=== PATIENT | male | born 1950 | race Caucasian/White ===

== ENCOUNTER 2019-03-31 06:00 | Outpatient (RCR) | payer OTHER, SELFPAY | END 2019-04-30 23:59 | disposition home or self-care (01) | LOC: SPT 06:00 | PROVIDERS: Family Provider Family Medicine; PCP Family Medicine; Visit Provider Specialist | DX: Z47.1 Aftercare following joint replacement surgery (principal); Z96.652 Presence of left artificial knee joint ==

== ENCOUNTER 2019-04-28 11:38 | Outpatient (CLI) | payer OTHER, SELFPAY | END 2019-04-28 11:39 | disposition home or self-care (01) | LOC: RAD 14:33 | PROVIDERS: PCP Family Medicine; Visit Provider Specialist | DX: Z96.652 Presence of left artificial knee joint (principal) | CPT/HCPCS: 73560; 73565 ==

== ENCOUNTER 2019-05-07 07:49 | Outpatient (CLI) | payer OTHER, SELFPAY ==
--- NOTE | 2019-05-07 08:00 | NM_ITS ---
WS: [id number] THREE-PHASE BONE SCAN HISTORY: fracture vs prosthetic loosening COMPARISON: 04/28/2019 radiographs. Patient is is injected with 25.3 mCi Tc99m HDP intravenously. Immediate angiographic phase imaging is performed over the area of concern. Static blood pool imaging also performed. Two-hour whole-body sc intigrams performed in anterior and posterior projections. Additional large field of view imaging sub mitted as necessary. 3 phase imaging is centered over the knees. Angiographic and blood pool phase imaging is normal. On t he two-hour delayed imaging there is some very mild increased uptake surrounding the LEFT knee prosth esis, greatest involving the femoral prosthesis. Arthroplasty was performed approximately 13 months a go. This may be some residual uptake from the surgery. Early loosening not excluded. No loosening is evident radiographically as seen on 04/28/2019. Mild increased uptake at the AC joints and RIGHT sternoclavicular joint, RIGHT knee and first metatar sophalangeal joint. These are changes associated with osteoarthritis most likely. Normal soft tissue activity and renal uptake is identified. NM/NM bone 3 phase 86522 IMPRESSION: 1. No evidence for infection or osteomyelitis at the LEFT knee arthroplasty. 2. Mild increased uptake at the LEFT knee around the prosthetic components, gr eatest involving the femoral component. Early loosening may appear similar but no evidence for loosening radiographically. May be residual marrow uptake from the prosthetic placement was done just over a year ago. Recommend continued rad iographic follow-up for evolution of prosthetic loosening.
== END 2019-05-07 07:50 | disposition home or self-care (01) ==
LOC: RAD 07:53
PROVIDERS: Family Provider Family Medicine; PCP Family Medicine; Visit Provider Specialist
DX: Z96.652 Presence of left artificial knee joint (principal)
CPT/HCPCS: 78315; A9561

== ENCOUNTER 2019-10-19 14:03 | Emergency (ER) | payer OTHER, SELFPAY ==
[2019-10-19 14:17] VITALS: BP 165/89; PULSE 62; RESP 16; TEMP 36.9; O2SAT 95; BMI 28.8
--- NOTE | 2019-10-19 14:27 | CT_ITS ---
WS: [id number] CT ABDOMEN AND PELVIS WITH CONTRAST HISTORY: abdominal pain TECHNIQUE: Imaging performed of the abdomen and pelvis with IV contrast. Single phase imaging of the abdomen. Coronal and sagittal reformats are submitted. All CT scans at [facility] use at least one of these dose optimization techniques: automated exposure control; mA and/or kV adjustment per patient size (includes targeted exams where dose is matched to clinical indication); or iterativ e reconstruction. IV CONTRAST: Omnipaque 300; 95 mL IV. Oral contrast: No DLP: 1587.15 mGy.cm COMPARISON: 04/20/2018 Lower thorax: Hyperinflated lungs from emphysema. Heart is normal size. No hiatal hernia. Liver/biliary system: Normal size with no intrahepatic dilatation. Gallbladder: Normal. No gallstones or wall thickening. No pericholecystic fluid. Pancreas: Normal. Spleen: Normal. Adrenal glands: Normal. Right kidney: Mild perinephric stranding and cortical thinning. Cortical 3.2 cm cyst from the mid kid evelyn. There is an additional smaller cyst at the inferior pole. Left kidney: Mild perinephric stranding and cortical thinning. Stable cortical cyst in the lower pole measures 1.8 cm. Aorta: Mild atherosclerosis with no aneurysm. Lymphadenopathy: None. Free fluid: None. GI tract: The appendix is not definitely visualized. No GI tract obstruction or mucosal thickening. T here are a few scattered diverticula throughout the colon with no acute inflammation. Abdominal wall: Unremarkable abdominal wall. No hernia. Pelvis: Normal. Bones: Mild disc space narrowing at L5-S1. Moderate degenerative spondylitic changes in the lumbar sp ine. CT/CT abdomen pelvis w con* [id number] IMPRESSION: 1. No acute abdominal or pelvic abnormalities. 2. Mild perinephric stranding and bilateral renal cysts. 3. No GI tract obstruction. 4. The appendix is not identified.
--- NOTE | 2019-10-19 14:28 | ED_ITS ---
HPI - General Adult General: Chief complaint: General Medical Stated complaint: CONSTIPATION Time Seen by Provider: 10/19/19 14:23 History of Present Illness: HPI narrative: Patient sent over from the [place] [facility] today due to constipation and their scrips have not been working to help him have more frequent bowel movement or larger bowel meds. Patient complains about some abdominal pain also 22 pound weight loss in last 3 weeks. Said stools are thin irregular over the last 3 weeks. MD complaint: Abdominal pain constipation Onset (ago): week(s) Location: abdomen Quality: dull Pain Consistency: intermittent Relieving factors: none Associated symptoms: Reports no associated symptoms; Deny chest pain, dyspnea, headache(s), nausea, rash or vomiting Treatments prior to arrival: other (Enema stool softeners laxatives) Review of Systems Const: Denies: fever(s), chills or body aches Eyes: Denies: change in vision or blurry vision ENMT: Denies: throat pain or nasal congestion Card: Denies: chest pain or dyspnea on exertion Resp: Denies: dyspnea, productive cough or non-productive cough GI: Reports: abdominal pain, constipation and bloating; Denies: nausea or vomiting : Denies: difficulty urinating Musc: Denies: extremity pain Skin/Breast: Denies: rash Neuro: Denies: headache(s) Psych: Denies: anxiety or depression Coleman/Lymph: Denies: easy bruising PFSH ED PFSH: Surgical History Status post total knee replacement, left Family History Brother Diabetes Mother Cancer Social History Smoking and tobacco status: never smoked Alcohol intake: current Alcohol intake frequency: holidays/special occasions only Alcohol type: wine Physical Exam Const: COMMON NORMALS: no acute distress, average body habitus and patient oriented x3 HENMT: COMMON NORMALS: normocephalic HEAD & SCALP: normal to inspection and normocephalic FACE & SINUS: normal facial exam Eye: COMMON NORMALS: conjunctivae normal GENERAL EYE: appearance normal, both eyes and all related structures CONJUNCTIVA: Yes conjunctivae normal Neck/C-Spine: COMMON NORMALS: no JVD Chest: COMMONS NORMALS: normal inspection of the chest Resp: COMMON NORMALS: normal respiratory effort and clear to auscultation bilaterally AUSCULTATION: clear to auscultation bilaterally Cardio: COMMON NORMALS: no JVD, regular rate and regular rhythm RATE: regular rate RHYTHM: regular rhythm GI: COMMON NORMALS: Normal to inspection, nondistended, normoactive bowel sounds present PALPATION: Yes Tenderness to palpation present (GI) Details: LLQ and RLQ Extremity: COMMON NORMALS: normal to inspection and full ROM Neuro: COMMON NORMALS: patient oriented x3 Course Vital Signs: Vital signs: Vital Signs Temperature 98.4 F 10/19/19 14:17 Pulse Rate 70 10/19/19 15:35 Respiratory Rate 20 H 10/19/19 15:35 Blood Pressure 119/70 10/19/19 15:35 Pulse Oximetry 98 10/19/19 15:35 MDM - General Adult Lab Data: Labs: Lab Results 10/19/19 10/19/19 10/19/19 Range/Units 14:40 14:44 14:44 WBC 7.1 (4.0-10.0) 10^3/ uL RBC 4.76 (4.1-5.3) 10^6/u L Hgb 14.5 (11.7-16.6) g/dL Hct 43.9 (42.0-52.0) % MCV 92.2 (80-94) fL MCH 30.5 (28.0-34.0) pg MCHC 33.0 (30.0-36.0) g/dL RDW 12.5 (12.1-15.1) % Plt Count 199 (130-400) 10^3/c mm MPV 10.8 H (7.4-10.4) fL Neut % (Auto) 66.0 % Lymph % (Auto) 16.3 % [place] % (Auto) 10.3 % Eos % (Auto) 5.9 % Baso % (Auto) 1.4 % Neut # (Auto) 4.68 (1.8-7.7) 10^3/u L Lymph # (Auto) 1.2 (0.8-4.8) 10^3/u L [place] # (Auto) 0.7 (0.2-0.9) 10^3/u L Eos # (Auto) 0.4 (0.0-0.8) 10^3/u L Baso # (Auto) 0.1 (0.0-0.1) 10^3/u L Nucleated RBC % (a uto) 0 % Nucleated RBCs # 0.0 /100WBC Sodium 134 L (136-145) mmol/L Potassium 3.8 (3.5-5.1) mmol/L Chloride 102 (98-107) mmol/L Carbon Dioxide 24 (22-29) mmol/L Anion Gap 11.8 (5-19) BUN 22 (8-23) mg/dL Creatinine 0.9 (0.7-1.2) mg/dL Glucose 120 H (65-115) mg/dL Calculated Osmolal ity 276 L (285-295) mOsm/k g Calcium 9.3 (8.5-10.5) mg/dL Total Bilirubin 0.5 (0.15-1.2) mg/dL AST 22 (0-40) U/L ALT 16 (0-41) U/L Alkaline Phosphata se 65 (40-130) IU/L Total Protein 6.9 (6.6-8.7) g/dL Albumin 4.4 (3.5-5.2) g/dL Globulin 2.5 (1.3-4.6) g/dL Lipase 24 (13-60) U/L Urine Color Dark yellow (Yellow) Urine Appearance Clear (CLEAR) Urine pH 5 (5-7) Ur Specific Gravit y 1.025 (1.005-1.030) Urine Protein Neg (Negative) Urine Glucose (UA) Norm (Normal) Urine Ketones Negative (Negative) Urine Blood Neg (Negative) Urine Nitrate Negative (Negative) Urine Bilirubin 1+ H (NEGATIVE) Urine Urobilinogen 1 H (Negative) mg/dL Ur Leukocyte Maureen ase Negative (Negative) Discharge Plan Discharge Patient Disposition: Home, Self-Care Clinical Impression: Constipation Qualifiers: Constipation type: slow transit constipation Qualified Code(s): K59.01 - Slow transit constipation Condition: Stable Prescriptions: No Action meloxicam 15 mg tablet 15 mg PO DAILY RF: 0 fluoxetine [Prozac] 10 mg capsule 10 mg PO DAILY RF: 0 pantoprazole [Protonix] 40 mg tablet,delayed release (DR/EC) 40 mg PO DAILY RF: 0 losartan 50 mg tablet 25 mg PO DAILY RF: 0 atenolol 50 mg tablet 25 mg PO DAILY RF: 0 ibuprofen 200 mg capsule 200 mg PO Q6H PRN (Reason: Pain) RF: 0 atorvastatin 10 mg tablet 10 mg PO DAILY RF: 0 Aspirin Low Dose 81 mg Tablet,Delayed Release (Dr/Ec) 81 mg PO DAILY RF: 0 Discharge Orders: Discharge Order (Routine); Ordered 10/19/19 Ordered By: Ja Campbell Referrals: Tr Patel [Primary Care Provider] - Discharge Diet: As Directed Discharge Activity: Resume usual activity Patient Instructions: Constipation (ED) Activity Restrictions/Additional Instructions: Follow-up with medical provider as directed. Take medications as currently pr escribed. Return to the ER or your medical provider if condition worsens. Please read and understand discharge instructions. If any questions ask please. 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
[2019-10-19 14:50] LABS: Add Urine Microscopic? NO
[2019-10-19 14:50] LABS: Basophils # 0.1 10^3/uL (0.0-0.1); Basophils % 1.4 %; Eosinophils # 0.4 10^3/uL (0.0-0.8); Eosinophils % 5.9 %; Hematocrit 43.9 % (42.0-52.0); Hemoglobin 14.5 g/dL (11.7-16.6); Lymphocytes # 1.2 10^3/uL (0.8-4.8); Lymphocytes % 16.3 %; Mean Corpuscular Hemoglobin 30.5 pg (28.0-34.0); Mean Corpuscular Volume 92.2 fL (80-94); Mean Platelet Volume 10.8 fL (7.4-10.4); Monocytes # 0.7 10^3/uL (0.2-0.9); Monocytes % 10.3 %; Neutrophils # 4.68 10^3/uL (1.8-7.7); Nucleated Red Blood Cells % 0 %; Platelet Count 199 10^3/cmm (130-400); Red Blood Count 4.76 10^6/uL (4.1-5.3); Red Cell Distribution Width 12.5 % (12.1-15.1); White Blood Count 7.1 10^3/uL (4.0-10.0)
[2019-10-19 14:56] LABS: Bilirubin Urine 1+ (NEGATIVE); Blood Urine Neg (Negative); Glucose Urine UA Norm (Normal); Ketones Urine Negative (Negative); Leukocyte Esterase Urine Negative (Negative); Nitrate Urine Negative (Negative); Protein Urine Neg (Negative); Specific Gravity, Urine 1.025 (1.005-1.030); Urine Appearance Clear (CLEAR); Urine Color Dark Yellow (Yellow); Urobilinogen Urine 1 mg/dL (Negative); pH Urine 5 (5-7)
[2019-10-19 15:04] LABS: Alanine Aminotransferase 16 U/L (0-41); Albumin Level 4.4 g/dL (3.5-5.2); Alkaline Phosphatase 65 IU/L (40-130); Anion Gap 11.8 (5-19); Aspartate Amino Transferase 22 U/L (0-40); Blood Urea Nitrogen 22 mg/dL (8-23); Calcium 9.3 mg/dL (8.5-10.5); Carbon Dioxide 24 mmol/L (22-29); Chloride 102 mmol/L (98-107); Globulin 2.5 g/dL (1.3-4.6); Glucose 120 mg/dL (65-115); Lipase 24 U/L (13-60); Osmolality Calculated 276 mOsm/kg (285-295); Potassium 3.8 mmol/L (3.5-5.1); Sodium 134 mmol/L (136-145); Total Bilirubin 0.5 mg/dL (0.15-1.2); Total Protein 6.9 g/dL (6.6-8.7)
[2019-10-19] MEDS: iohexol 300 mg/mL 100 mL Btl IV (15:25)
[2019-10-19 15:35] VITALS: BP 119/70; PULSE 70; RESP 20; O2SAT 98
[2019-10-19 16:03] VITALS: BP 188/98; PULSE 61; RESP 18; O2SAT 94
== END 2019-10-19 16:03 | disposition home or self-care (01) ==
PROVIDERS: Emergency Provider Nurse Practitioner Family; PCP Family Medicine
DX: K59.01 Slow transit constipation (principal); Z79.82 Long term (current) use of aspirin
CPT/HCPCS: 12345; 36415; 74177; 80053; 81003; 83690; 85025; 99282; 99283; Q9967

== ENCOUNTER → 2019-12-15 10:56 | Outpatient (BNVA) | payer OTHER, SELFPAY | PROVIDERS: PCP Family Medicine; Visit Provider Internal Medicine | DX: Z11.59 Encounter for screening for other viral diseases (principal) | CPT/HCPCS: 87635 ==

== ENCOUNTER 2019-12-20 08:44 | Day surgery (SDC) | payer OTHER, SELFPAY ==
[2019-12-16 13:13] VITALS: BMI 24.3
--- NOTE | 2019-12-20 08:50 | W.PM.OPSUD ---
Surgery/Procedure H&P Update DATE OF PROCEDURE: December 20, 2019 DATE H&P PERFORMED: 12/02/19 PLANNED PROCEDURE: Operation Date: 12/20/19 09:30 Pro[place] Procedures [place] D 62832 K22.70(Not Applicable) - Jose Luis Cano MD
[2019-12-20 09:09] VITALS: BP 169/98; PULSE 59; RESP 18; TEMP 36.3; O2SAT 97
--- NOTE | 2019-12-20 09:23 | ANES.PREANE2 ---
Pre-Anesthetic Assessment Pre-Anesthetic Assessment: Height/Weight: Height 1.98 m Weight 95.254 kg Temp Pulse Resp BP Pulse Ox 97.3 F L 59 L 18 169/98 97 12/20/19 09:09 12/20/19 09:09 12/20/19 09:09 12/20/19 09:09 12/20/19 09:09 Preop Diagnosis: egd Proposed Procedure: Operation Date: 12/20/19 09:30 Proposed Procedures p EGD 49018 K22.70(Not Applicable) - Jose Luis Cano MD Familial anesthetic complications: None Was Beta Carola taken within 24 hours: N/A Last intake: Intake Last Liquid Date 12/19/19 Last Liquid Time 23:00 Last Solid Date 12/19/19 Last Solid Time 18:00 Social: Social History: No alcohol and No tobacco Exam: Pre-Anes Outpt Exam: alert, oriented x 3, clear to auscultation bilaterally and regular rate & rhythm Airway: Cervical ROM: WNL MP: 4 Dentition: Loose Pulmonary: Pulmonary: COPD CV/HEM: CV/HEM: HTN Metabolic: Metabolic: Hyperlipidemia and Morbid obesity Anesthetic Plan: ASA status: 2 Anesthesia: MAC Risk of > 500 ml blood loss (7ml/kg in children): No PFSH Anesthesia PFSH: Surgical History Status post total knee replacement, left Family History Brother Diabetes Mother Cancer Social History (Updated 12/02/19 @ 14:[address]) Smoking and tobacco status: never smoked Alcohol intake: current Alcohol intake frequency: holidays/special occasions only Alcohol type: wine History of recent travel: No Data Anesthesia Cardiac Studies: No Data to Display
[2019-12-20] MEDS: sodium chloride 0.9% 1,000 ML 30 ML IV (09:24)
[2019-12-20 10:00] VITALS: BP 153/81; PULSE 53; RESP 18; TEMP 36.3; O2SAT 94
--- NOTE | 2019-12-20 10:04 | ANE.PACU2 ---
Inpatient post-anesthesia follow up: Airway intact: Yes Vital signs: Temperature 97.4 F Pulse Rate 53 Respiratory Rate 18 Blood Pressure 153/81 Pulse Oximetry 94 Oxygen Delivery Me thod Nasal Cannula Oxygen Flow Rate 2 Fraction of Inspir ed Oxygen Hydration adequate: Yes Nausea and vomiting: No Pain level: 0/10 Mental status: Baseline
== END 2019-12-20 10:30 | disposition home or self-care (01) ==
PROVIDERS: PCP Family Medicine; Visit Provider Internal Medicine
PROC: 0DJ08ZZ Inspection of Upper Intestinal Tract, Via Natural or Artificial Opening Endoscopic (ICD-10-PCS; CPT 43235; principal; 2019-12-20 09:30)
DX: K22.70 Barrett's esophagus without dysplasia (principal); I10 Essential (primary) hypertension; J44.9 Chronic obstructive pulmonary disease, unspecified; E78.5 Hyperlipidemia, unspecified; E66.01 Morbid (severe) obesity due to excess calories; Z79.82 Long term (current) use of aspirin
CPT/HCPCS: 12345; 43239; 88305; J2704; J3010; J7030

== ENCOUNTER 2020-01-26 13:41 | Emergency (ER) | payer OTHER, SELFPAY ==
[2020-01-26 13:44] VITALS: BP 150/79; PULSE 64; RESP 16; TEMP 36.7; O2SAT 96; BMI 28.0
--- NOTE | 2020-01-26 14:00 | XR_ITS ---
WS: [id number] Exam: XR ankle LT min 3V* [id number] Date/Time of Exam: 01/26/2020 2:00 PM Reason For Exam: left ankle pain s/p fall Findings: Multiple views of the ankle reveal no fracture or displacements of bone. No soft tissue swelling is present. There are no periosteal reactions noted. The talus and calcaneus are in adequate position. The joint space is smooth and equidistant.. Plantar heel spur noted. Calcifications in the plantar aponeurosis. XR/XR ankle LT min 3V* [id number] IMPRESSION: Negative left ankle.
--- NOTE | 2020-01-26 14:00 | XR_ITS ---
WS: [id number] Exam: XR knee LT 3V* [id number] Date/Time of Exam: 01/26/2020 2:00 PM Reason For Exam: left knee pain s/p fall Comparison 04/28/2019. A total knee prosthesis is in place. No sign of fracture or loosening. No joint effusion. Normal soft tissues. XR/XR knee LT 3V* [id number] IMPRESSION: 1. Unremarkable total knee prosthesis.
--- NOTE | 2020-01-26 14:00 | XR_ITS ---
WS: [id number] Exam: XR foot LT min 3V* [id number] Date/Time of Exam: 01/26/2020 2:00 PM Reason For Exam: left foot pain No fracture or dislocation noted. Plantar heel spur with calcifications in the plantar aponeurosis. M inimal DJD at the first MP joint. XR/XR foot LT min 3V* [id number] IMPRESSION: 1. No fracture or dislocation. 2. Plantar heel spur. Minimal degenerative changes.
--- NOTE | 2020-01-26 14:01 | ED_ITS ---
HPI - Extremity Problem General: Chief complaint: Extremity Injury, Lower Stated complaint: left ankle pain Time Seen by Provider: 01/26/20 13:54 History of Present Illness: HPI Narrative: 69-year-old male patient presents to the emergency department status post fall. He reports a fall approximately 3 to 4 days prior, reports fell off a 4 foot ladder, attempted to stop his fall with his left leg, reports pain to the left foot, left ankle and left knee. He reports left knee replacement last year. Has experienced swelling and pain with ambulation. He continues with left ankle pain and left foot pain. He reports pain is worse at night and with ambulation. MD Complaint: extremity pain and joint pain Onset (ago): day(s) (3-4) Pain Consistency: intermittent Location: left, lower extremity, knee and toe Severity scale (1-10): 4 Quality: aching Relieving factors: immobilization and rest Exacerbating factors: range of motion and weight bearing Associated symptoms: Reports no associated symptoms; Deny chest pain, fever(s) or rash Review of Systems General: Reports: 10 or more systems reviewed and unremarkable except in HPI and below Const: Denies: fever(s), chills or diaphoresis Eyes: Denies: blurry vision or eye redness ENMT: Denies: throat pain, dental pain or disequilibrium Card: Denies: chest pain, palpitations or irregular heart rhythm Resp: Denies: dyspnea, productive cough, non-productive cough or wheezing GI: Denies: abdominal pain, nausea or vomiting : Denies: dysuria Musc: Reports: joint pain (left knee, left ankle, left foot); Denies: neck pain or back pain Skin/Breast: Denies: rash or pruritus Neuro: Denies: headache(s), weakness in extremities or behavioral changes Psych: Denies: anxiety or depression Coleman/Lymph: Denies: easy bruising PFSH ED PFSH: Surgical History Status post total knee replacement, left Family History Brother Diabetes Mother Cancer Social History (Updated 12/02/19 @ 14:[address]) Smoking and tobacco status: never smoked Alcohol intake: current Alcohol intake frequency: holidays/special occasions only Alcohol type: wine History of recent travel: No Physical Exam Const: COMMON NORMALS: no acute distress, patient oriented x3, healthy appearing and alert GENERAL APPEARANCE: cooperative, comfortable and well hydrated HENMT: COMMON NORMALS: normocephalic, Normal external nose present and moist oral mucous membranes HEAD & SCALP: normocephalic NOSE: Normal external nose present Eye: COMMON NORMALS: Equal, round and reactive pupils present and EOMs intact bilaterally GENERAL EYE: appearance normal, both eyes and all related structures PUPIL: Yes Equal, round and reactive pupils present Neck/C-Spine: COMMON NORMALS: full ROM and no lymphadenopathy GENERAL: Yes normal visual inspection and Yes trachea midline CERVICAL SPINE: Yes cervical ROM normal Lymph: LYMPHATIC: no lymphadenopathy noted Chest: COMMONS NORMALS: normal inspection of the chest Resp: COMMON NORMALS: normal respiratory effort and clear to auscultation bilaterally AUSCULTATION: clear to auscultation bilaterally Cardio: COMMON NORMALS: regular rhythm, S1 normal heart sound present, S2 normal heart sound present and Peripheral pulses 2+ throughout RHYTHM: regular rhythm HEART SOUNDS: S1 normal heart sound present and S2 normal heart sound present PERIPHERAL PULSES: Peripheral pulses 2+ throughout GI: COMMON NORMALS: Soft to palpation and non-tender INSPECTION: Yes normal to inspection PALPATION: Yes Soft to palpation : COMMON NORMALS: Yes no CVA tenderness BLADDER/KIDNEY EXAM: Yes no CVA tenderness Back/Pelvis: COMMON NORMALS: no CVA tenderness and thoracic and lumbar spine normal to inspection Extremity: COMMON NORMALS: normal to inspection and capillary refill normal GENERAL: Yes normal exam except as noted LEFT LOWER EXTREMITY: Yes knee joint Left knee: Yes inspection (edema, - erythema), Yes palpation (tenderness to anterior, lateral, medial patellar palpation), Yes ROM (Flexion and extension noted, pain with flexion) and Yes neurovascular exam (Distally intact) and Yes ankle joint Left ankle: Yes inspection (Surrounding the joint, left lateral edema noted), Yes palpation (Tenderness more pronounced on the anterior left lateral area), Yes ROM (Limited dorsiflexion and extension secondary to pain, positive drawer exam) and Yes neurovascular exam (Distally intact) EXTREMITY IMAGE (FRONT): 1. Pain, distal ecchymosis to the left lateral distal foot. Full dorsi flexion extension to the toes noted. Pain with palpation to the fifth MCP distal. Neuro: COMMON NORMALS: patient oriented x3 and no focal motor deficits SENSORIUM/ORIENTATION: Yes alert Psych: COMMON NORMALS: mental status grossly normal, Normal thought process present and cooperative ACTIVITY/MOTOR BEHAVIOR: Yes appropriate eye contact THOUGHT PROCESS: Normal thought process present Skin: COMMON NORMALS: no rashes or lesions noted and turgor normal GENERAL SKIN EXAM: no rashes or lesions noted and turgor normal Course ED course: 69-year-old male patient presents to the emergency department with left knee, left ankle and left foot pain status post fall off for left foot ladder 3 to 4 days ago. Reports pain with ambulation and at night with rest. X-rays negative for acute fracture. Splint and crutches offered, he declined, advised to take Tylenol ibuprofen as needed for pain. Reports for follow-up with his primary care provider if worsening symptoms or return to the emergency department. Vital Signs: Vital signs: Vital Signs Temperature 98.1 F 01/26/20 13:44 Pulse Rate 72 01/26/20 15:20 Respiratory Rate 18 01/26/20 15:20 Blood Pressure 148/57 01/26/20 15:20 Pulse Oximetry 97 01/26/20 15:20 MDM - Extremity (Nontraumatic) Imaging Data^: Xray Ortho: Radiologist's impression: [place] [address] XRay Report Signed Patient: Pradeep Pacheco Unit #: [id number] : 1950 Age/Sex: 69 / M ADM Date: 01/26/20 Loc: ER Room/Bed: Attending Dr: Ordering Provider/Ordering MD: Clara Pinzon Date of Service: 01/26/20 Procedure(s): XR ankle LT min 3V* [id number] Accession Number(s): [id number] Report Number: [id number] WS: [id number] Exam: XR ankle LT min 3V* [id number] Date/Time of Exam: 01/26/2020 2:00 PM Reason For Exam: left ankle pain s/p fall Findings: Multiple views of the ankle reveal no fracture or displacements of bone. No soft tissue swelling is present. There are no periosteal reactions noted. The talus and calcaneus are in adequate position. The joint space is smooth and equidistant.. Plantar heel spur noted. Calcifications in the plantar aponeurosis. XR/XR ankle LT min 3V* 06050 IMPRESSION: Negative left ankle. Dictated By: Braulio Sanchez DO Signed By: Braulio Sanchez DO Signed Date/Time: 01/26/20 1430 DD/ 1428 Other Xray: Radiologist's impression: [address] [address] XRay Report Signed Patient: Pradeep Pacheco Unit #: [id number] : 1950 Age/Sex: 69 / M ADM Date: 01/26/20 Loc: ER Room/Bed: Attending Dr: Ordering Provider/Ordering MD: Clara Pinzon Date of Service: 01/26/20 Procedure(s): XR foot LT min 3V* 69756 Accession Number(s): [id number] Report Number: [id number] WS: [id number] Exam: XR foot LT min 3V* [id number] Date/Time of Exam: 01/26/2020 2:00 PM Reason For Exam: left foot pain No fracture or dislocation noted. Plantar heel spur with calcifications in the plantar aponeurosis. Minimal DJD at the first MP joint. XR/XR foot LT min 3V* 83683 IMPRESSION: 1. No fracture or dislocation. 2. Plantar heel spur. Minimal degenerative changes. Dictated By: Braulio Sanchez DO Signed By: Braulio Sanchez DO Signed Date/Time: 01/26/20 1447 DD/ 1446 Other Imaging: Radiologist's impression: [address] [address] XRay Report Signed Patient: Pradeep Pacheco Unit #: [id number] : 1950 Age/Sex: 69 / M ADM Date: 01/26/20 Loc: ER Room/Bed: Attending Dr: Ordering Provider/Ordering MD: Clara Pinzon Date of Service: 01/26/20 Procedure(s): XR knee LT 3V* 63866 Accession Number(s): [id number] Report Number: [id number] WS: [id number] Exam: XR knee LT 3V* [id number] Date/Time of Exam: 01/26/2020 2:00 PM Reason For Exam: left knee pain s/p fall Comparison 04/28/2019. A total knee prosthesis is in place. No sign of fracture or loosening. No joint effusion. Normal soft tissues. XR/XR knee LT 3V* [id number] IMPRESSION: 1. Unremarkable total knee prosthesis. Dictated By: Braulio Sanchez DO Signed By: Braulio Sanchez DO Signed Date/Time: 01/26/201440 DD/ 39 Discharge Plan Discharge Patient Disposition: Home Clinical Impression: Fall (on) (from) other stairs and steps, initial encounter, Foot pain, left Ankle sprain Qualifiers: Encounter type: initial encounter Involved ligament of ankle: unspecified ligament Laterality: left Qualified Code(s): S93.402A - Sprain of unspecified ligament of left ankle, initial encounter Contusion of knee, left Qualifiers: Encounter type: initial encounter Qualified Code(s): S80.02XA - Contusion of left knee, initial encounter Condition: Stable Prescriptions: No Action meloxicam 15 mg tablet 15 mg PO DAILY RF: 0 fluoxetine [Prozac] 10 mg capsule 20 mg PO DAILY RF: 0 pantoprazole [Protonix] 40 mg tablet,delayed release (DR/EC) 40 mg PO DAILY RF: 0 losartan 50 mg tablet 25 mg PO DAILY RF: 0 atenolol 50 mg tablet 25 mg PO DAILY RF: 0 atorvastatin 10 mg tablet 10 mg PO DAILY RF: 0 aspirin [Aspirin Low Dose] 81 mg Tablet,Delayed Release (Dr/Ec) 81 mg PO DAILY RF: 0 Discharge Orders: Discharge Order (Routine); Ordered 01/26/20 Ordered By: Clara Pinzon Referrals: Tr Patel [Primary Care Provider] - Discharge Diet: Usual diet Discharge Activity: Resume usual activity Patient Instructions: Ankle Sprain (ED), Contusion in Adults (ED), Ankle Exercises (GEN) Activity Restrictions/Additional Instructions: Return to the emergency department if you develop left lower extremity swelling with redness especially behind the calf May take ibuprofen or Tylenol as needed for pain Keep the left lower extremity elevated as needed for pain, cool compresses may help with pain Return to the emergency department if you develop any worsening/concerning symptoms. Discharge Date/Time: 01/26/20 15:22 Coding Level of Care Code ED Associate Director Qa for Yeni Fwcurry Exam Comprehensive
[2020-01-26 15:20] VITALS: BP 148/57; PULSE 72; RESP 18; O2SAT 97
== END 2020-01-26 15:22 | disposition home or self-care (01) ==
PROVIDERS: Emergency Provider Nurse Practitioner Family; PCP Family Medicine
DX: S93.402A Sprain of unspecified ligament of left ankle, initial encounter (principal); S80.02XA Contusion of left knee, initial encounter; Z79.82 Long term (current) use of aspirin; W11.XXXA Fall on and from ladder, initial encounter; Z96.652 Presence of left artificial knee joint
CPT/HCPCS: 12345; 73562; 73610; 73630; 99281; 99282

== ENCOUNTER 2021-08-12 10:57 | Emergency (ER) | payer OTHER, SELFPAY ==
[2021-08-12 11:10] VITALS: BP 143/75; PULSE 60; RESP 16; TEMP 36.6; O2SAT 95; BMI 30.4
--- NOTE | 2021-08-12 12:26 | W.ED.EXTPRO ---
HPI - Extremity Problem General: Chief complaint: Extremity Injury, Upper Stated complaint: Right arm lac from fall Time Seen by Provider: 08/12/21 12:21 Source: patient Mode of arrival: ambulatory Limitations: no limitations History of Present Illness: 71-year-old male presents to the ER today for a laceration to the right forearm. Patient reports that occurred this AM. He tripped and fell and hit his arm on a box he thinks. He denies hitting his head. Denies loss of consciousness. Patient reports his son was concerned because of the bleeding however patient reports he is on aspirin and bleeds frequently. Bleeding has since stopped. Patient reports normal range of motion and no pain in the right arm, forearm or hand. Patient reports no other concerns at this time. Review of Systems General: Reports: 10 or more systems reviewed and unremarkable except in HPI and below PFSH ED PFSH: Surgical History Status post total knee replacement, left Family History Brother Diabetes Mother Cancer Social History Smoking and tobacco status: never smoked Alcohol intake: current Alcohol intake frequency: holidays/special occasions only Alcohol type: wine History of recent travel: No Physical Exam Const: COMMON NORMALS: no acute distress, average body habitus, patient oriented x3, no limitations, healthy appearing and alert HENMT: COMMON NORMALS: normocephalic, atraumatic, hearing grossly normal bilaterally and Normal external nose present HEAD & SCALP: normocephalic and atraumatic NOSE: Normal external nose present Eye: COMMON NORMALS: conjunctivae normal CONJUNCTIVA: Yes conjunctivae normal Neck/C-Spine: COMMON NORMALS: full ROM Resp: EFFORT & INSPECTION: Yes able to speak in complete sentences Cardio: COMMON NORMALS: regular rate and regular rhythm RATE: regular rate RHYTHM: regular rhythm Back/Pelvis: COMMON NORMALS: thoraco-lumbar ROM normal Extremity: COMMON NORMALS: full ROM NARRATIVE EXTREMITY EXAM: No swelling noted in the right arm. Patient has full range of motion without pain. Neuro: COMMON NORMALS: patient oriented x3 SENSORIUM/ORIENTATION: Yes alert Psych: COMMON NORMALS: mental status grossly normal and Normal thought process present THOUGHT PROCESS: Normal thought process present Skin: NARRATIVE SKIN EXAM: Patient has a small skin tear noted to the right forearm. Bleeding is controlled at this time. Skin flap is in place. No signs of infection Course ED course: 71-year-old male presents to the ER today for a right forearm skin tear/laceration. This occurred just prior to arrival. Patient tripped and hit his arm in a box when he fell. He denies any pain. Denies any loss of consciousness. Patient denies hitting his head. He reports normal right arm movement without pain. Patient reports that he is on aspirin and believes frequently but bleeding has since stopped. No other concerns today. Vital Signs: Vital signs: Vital Signs Temperature 97.9 F 08/12/21 11:10 Pulse Rate 60 08/12/21 11:10 Respiratory Rate 16 08/12/21 11:10 Blood Pressure 143/75 08/12/21 11:10 Pulse Oximetry 95 08/12/21 11:10 MDM - Extremity (Nontraumatic) Medical Decision Making 71-year-old male presents to the ER today for a right forearm skin tear/laceration. This occurred just prior to arrival. Patient tripped and hit his arm in a box when he fell. He denies any pain. Denies any loss of consciousness. Patient denies hitting his head. He reports normal right arm movement without pain. Patient reports that he is on aspirin and believes frequently but bleeding has since stopped. Patient skin tear was cleaned with normal saline and a dressing was applied. Wound care was discussed with patient. He should follow-up PCP in 5 to 7 days as needed. Return to the ER with new or worsening symptoms. Patient verbalized understanding and is in agreement with the treatment plan. Critical Care Time Critical Care Time: Critical Care Time: No Discharge Plan Discharge Patient Disposition: Home Clinical Impression: Skin tear of right upper extremity Condition: Stable Prescriptions: No Action meloxicam 15 mg tablet 15 mg PO DAILY 0RF fluoxetine [Prozac] 10 mg capsule 20 mg PO DAILY 0RF Rx Instructions: pt states he takes this prn, and that is has been several days since he took it. pantoprazole [Protonix] 40 mg tablet,delayed release (DR/EC) 40 mg PO DAILY 0RF losartan 50 mg tablet 25 mg PO DAILY 0RF Rx Instructions: pt states he takes 25 mg daily. atenolol 50 mg tablet 25 mg PO DAILY 0RF Rx Instructions: TAKE 1/2 OF 50 mg to equal 25 mg daily. pt states this is how he takes this med. atorvastatin 10 mg tablet 10 mg PO DAILY 0RF aspirin [Aspirin Low Dose] 81 mg Tablet,Delayed Release (Dr/Ec) 81 mg PO DAILY 0RF Discharge Orders: Discharge ED (Routine); Ordered 08/12/21 Ordered By: Anum Young Referrals: Tr Patel [Primary Care Provider] - Discharge Diet: Usual diet Discharge Activity: Resume usual activity Patient Instructions: Opioid Safety Activity Restrictions/Additional Instructions: Wound care as discussed. Follow-up with PCP as needed. Coding Level of Care Code ED Wastewater Treatment Supervisor for Yeni Moncada
--- NOTE | 2021-08-12 13:54 | PC.NURSE ---
1200 Wound cleansed with NS and dressed with tegaderm and secured with kerlix for pressure. Patient instructed to loosen dressing if too tight.
== END 2021-08-12 12:35 | disposition home or self-care (01) ==
PROVIDERS: Emergency Provider Physician Assistant; PCP Family Medicine
DX: S41.111A Laceration without foreign body of right upper arm, initial encounter (principal); W01.0XXA Fall on same level from slipping, tripping and stumbling without subsequent striking against object, initial encounter; Z79.82 Long term (current) use of aspirin
CPT/HCPCS: 99282

== ENCOUNTER 2022-04-17 20:00 | Outpatient (CLI) | payer OTHER, SELFPAY | END 2022-04-17 20:01 | disposition home or self-care (01) | LOC: SLEEP 04-18 07:22 | PROVIDERS: PCP Family Medicine; Visit Provider Family Medicine | DX: G47.33 Obstructive sleep apnea (adult) (pediatric) (principal) | CPT/HCPCS: 95810 ==

== ENCOUNTER 2023-10-06 09:08 | Outpatient (CLI) | payer OTHER, SELFPAY ==
--- NOTE | 2023-10-06 09:18 | MR_ITS ---
WS: [id number] MRI HEAD WITHOUT CONTRAST TECHNIQUE: Sagittal T1, T2 axial, T2 axial FLAIR, axial and coronal T1 images, axial susceptibility w eighted imaging, axial diffusion weighted images, and coronal T2 images were obtained. CLINICAL INFORMATION: DEMENTIA COMPARISON: None. FINDINGS: No evidence of restricted diffusion to suggest acute ischemia. Ventricular system and basal cisterns are patent. No hemosiderin on susceptibility-weighted images. Mild to moderate small vessel changes. Moderate to advanced parenchymal volume loss. Moderate symmetric atrophy temporal lobes and hippocamp al formations. Small retention cyst LEFT maxillary sinus. Mastoid air cells are well aerated. Normal posterior nasopharynx. MR/MR head wo con* [id number] IMPRESSION: 1. No evidence of restricted diffusion to suggest acute ischemia. 2. Mild small vessel changes with moderate to advanced parenchymal volume loss . 3. Moderate symmetric atrophy temporal lobes and hippocampal formations. 4. No hemosiderin on susceptibility-weighted images. 5. No other acute findings.
== END 2023-10-06 09:09 | disposition home or self-care (01) ==
LOC: RAD 09:09
PROVIDERS: PCP Family Medicine; Visit Provider Family Medicine
DX: I67.89 Other cerebrovascular disease (principal); G31.89 Other specified degenerative diseases of nervous system; G93.81 Temporal sclerosis
CPT/HCPCS: 70551

== ENCOUNTER 2024-12-22 06:37 | Outpatient (CLI) | payer OTHER, SELFPAY ==
--- NOTE | 2024-12-22 07:07 | CT_ITS ---
WS: [id number] CT chest w con* [id number] HISTORY: ABNORMAL CXR/COUGH/CONGESTION W/SHORT OF BREATH/EX SMOKER TECHNIQUE: Axial imaging performed through the thorax. Coronal and sagittal reformats are submitted. All CT scans at [facility] use at least one of these dose optimization techniques: automated exposure control; mA and/or kV adjustment per patient size (includes targeted exams where dose is matched to clinical indication); or iterative reconstruction. CONTRAST: Omnipaque 350; 100 mL IV. DLP: 545.30 mGy.cm COMPARISON: None available. Lungs and central airway: Lungs are well aerated. Irregular solid mass beginning along the inferior RIGHT hilar region neck and extending into the RIGHT lower lobe measures 3.7 x 2.8 x 2.1 cm. Partial obstruction of the proximal RIGHT lower lobe bronchus. There is no postobstructive collapse. There is an additional 3 mm nodule in the medial LEFT upper lobe, image 14 of series 4. Pleura: Normal. No pleural effusion. Heart and pericardium: Normal size heart with no pericardial effusion. Mediastinum and guero: Mediastinal and hilar lymphadenopathy is identified. There are numerous enlarged rounded lymph nodes. Largest RIGHT paratracheal lymph node is 2.1 cm. AP window 2.2 cm. Subcarinal lymph node measures 2.8 x 3.4 cm. RIGHT hilar lymph node 1.7 cm. Vessels: Mild atherosclerosis aorta. Normal size pulmonary artery. Chest wall and lower neck: No soft tissue masses. Upper abdomen: No adrenal mass. Visualized liver is negative. Gallbladder is present. Bilateral renal cysts. Atherosclerosis aorta and SMA. Osseous structures: Thoracic spondylosis. No destructive bone lesions. CT/CT chest w con* [id number] IMPRESSION: 1. Irregular solid mass centered along the inferior RIGHT hilum extending RIGH T lower lobe measures 3.7 x 2.8 x 2.1 cm. Partial narrowing of the RIGHT lower lobe proximal bronchus. Highly suspicious for neoplasm. Recommend bronchoscopy. 2. Mediastinal and hilar lymphadenopathy. Numerous pathologically enlarged lym ph nodes are present. 3. No adrenal mass. 4. Follow-up with pulmonology for bronchoscopy, oncology and PET/CT imaging re commended.
[2024-12-22 07:52] LABS: Blood Urea Nitrogen 17 mg/dL (8-23)
[2024-12-22] MEDS: iohexol 350 mg/mL 500 mL Btl (per mL) IV (07:55)
== END 2024-12-22 06:38 | disposition home or self-care (01) ==
LOC: RAD 06:42
PROVIDERS: Radiology Diagnostic Radiology; PCP Family Medicine; Visit Provider Nurse Practitioner Family
DX: M17.11 Unilateral primary osteoarthritis, right knee (principal); M25.562 Pain in left knee; Z96.652 Presence of left artificial knee joint; G89.29 Other chronic pain; R91.8 Other nonspecific abnormal finding of lung field
CPT/HCPCS: 71260; 73560; 73565; 82565; 84520; 99204